=== PATIENT | female | born 1935 | race Two or more races ===

== ENCOUNTER 2019-03-25 07:17 | Day surgery (SDC) | payer OTHER ==
[~2019-03-25 07:17] MED LIST: ATIVAN2 M1 PO; NORVASC2.5 MG PO; PROTONIX40 MG PO; SINGULAIR10 MG PO; ZOLOFT50 MG PO
== END 2019-03-25 14:20 | disposition home or self-care (01) ==
LOC: CIR.AMB 07:17
DX: M75.111 Incomplete rotator cuff tear or rupture of right shoulder, not specified as traumatic (principal); M19.011 Primary osteoarthritis, right shoulder